=== PATIENT | female | born 1985 | race Caucasian/White ===

== ENCOUNTER 2017-08-20 12:42 | Emergency (ER) | payer MEDICAID ==
[2017-08-20 12:49] VITALS: BP 138/99
[2017-08-20] MEDS ORDERED: HYDROcod/ACETAM 5/325 MG TABLET PO STA (13:24)
--- NOTE | 2017-08-20 13:26 | ED Physician Documentation ---
PD HPI ABD PAIN - Stated complaint Stated Complaint: FEMALE ,BACK PX,FEVER - Chief complaint Chief Complaint: Abd Pain - History obtained from History obtained from: Patient - History of Present Illness Timing - onset: Other (2 3 days of right flank pain associated with urinary frequency and foul-smelling urine as well as subjective fevers at home. She does not have a lot of UTIs. No possibility of .) Review of Systems Ten Systems: 10 systems reviewed and negative Constitutional: reports: Fever, Chills, Fatigue GI: denies: Abdominal Pain, Nausea, Vomiting : reports: Dysuria, Frequency. 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 - Present Medications Home Medications: Ambulatory Orders Medication Instructions Recorded Confirmed HYDROcod/ACETAM 5/325 [[place] 5/325] 1 - 2 ea PO Q6H PRN #7 tablet 08/20/17 Sulfamethoxazole/Trimethoprim 1 each PO BID 5 Days tablet 08/20/17 [Sulfamethoxazole-Tmp Ds Tablet] - Allergies Allergies/Adverse Reactions: Allergies Allergy/AdvReac Type Severity Reaction Status Date / Time No Known Drug Allergies Allergy Verified 08/20/17 12:48 - Social History Does the pt smoke?: Yes Smoking Status: Current every day smoker PD ED PE NORMAL - Vitals Vital signs reviewed: Yes - General General: Alert and oriented X 3, No acute distress - Abdomen Abdomen: Normal bowel sounds, Soft, Non tender - Back Back: Other (Tender to the right CVA) - Neuro Neuro: Alert and oriented X 3, Normal speech - Psych Psych: Normal mood, Normal affect Results - Vitals Vitals: Vital Signs - 24 hr 08/20/17 12:45 Temperature 36.6 C Heart Rate 94 Respiratory 16 Rate Blood Pressure 138/99 H O2 Saturation 100 Oxygen O2 Source Room air - Labs Labs: Laboratory Tests 08/20/17 08/20/17 13:13 13:13 Urine Color YELLOW Urine Clarity CLEAR Urine pH 6.5 Ur Specific [place] 1.015 1.015 Urine Protein NEGATIVE Urine Glucose (UA) NEGATIVE Urine Ketones NEGATIVE Urine Occult Blood NEGATIVE Urine Nitrite NEGATIVE Urine Bilirubin NEGATIVE Urine Urobilinogen 0.2 (NORMAL) Ur Leukocyte Esterase NEGATIVE Ur Microscopic Review NOT INDICATED Urine Culture Comments NOT INDICATED Urine HCG, Qual NEGATIVE PD MEDICAL DECISION MAKING - ED course ED course: 31-year-old woman with symptoms very consistent with UTI/pyelonephritis. It is somewhat surprising that her urinalysis was negative, that said given the classic notes of her symptoms I am treating for this but patient understands that she needs to watch her symptoms closely and return for any new or worsening symptoms. She has already had an appendectomy and there is no blood in her urine to suggest renal colic. Departure - Departure Disposition: 01 Home, Self Care Clinical Impression: Pyelonephritis Condition: Good Record reviewed to determine appropriate education?: Yes Instructions: Pyelonephritis Dc Prescriptions: HYDROcod/ACETAM 5/325 [[place] 5/325] 1 - 2 ea PO Q6H PRN #7 tablet PRN Reason: Pain Sulfamethoxazole/Trimethoprim [Sulfamethoxazole-Tmp Ds Tablet] 1 each PO BID 5 Days tablet Comments: As discussed her urinalysis is normal which is surprising. However given that her symptoms are classic for kidney infection we have decided to treat for that , but come back for any new or worsening symptoms. Call your doctor to arrange a follow-up appointment, make the next available appointment. Your blood pressure was elevated today on check into the emergency department. This does not mean that you have hypertension, it is a common phenomenon to come to the emergency department and have elevated blood pressure. I recommend that you see your primary care physician within the week to have it rechecked when you are feeling better.
[2017-08-20 13:32] LABS: BILIRUBIN,URINE NEGATIVE (NEGATIVE); PH,URINE 6.5 PH (5.0-7.5)
[2017-08-20 13:36] LABS: UA CHARGE (STRIP ONLY) YES; UR CULTURE IF IND NOT INDICATED
[2017-08-20 13:37] LABS: HCG UR QUAL NEGATIVE
[2017-08-20] MEDS ORDERED: SULFAMETH/TRIMETH DS 800/160 MG TABLET PO STA (13:42)
[2017-08-20] MEDS ORDERED: SULFAMETH/TRIMETH DS 800/160 MG TABLET PO ONE (13:52)
[2017-08-20] MEDS ORDERED: HYDROcod/ACETAM 5/325 MG TABLET ONE (13:53)
== END 2017-08-20 13:52 | disposition home or self-care (01) ==
LOC: ED 12:42
DX: N12 Tubulo-interstitial nephritis, not specified as acute or chronic (principal); F17.200 Nicotine dependence, unspecified, uncomplicated
CPT/HCPCS: 81003; 81025; 99283; A9270; 81001; 87086